=== PATIENT | female | born 1970 | race Caucasian/White ===

== ENCOUNTER 2019-01-29 12:01 | Emergency (ER) | payer BC ==
[2019-01-29] MEDS: ACETAMINOPHEN 500 MG TAB PO (12:59)
[2019-01-29] MEDS: LORAZEPAM 1 MG TAB PO (12:59)
== END 2019-01-29 14:47 | disposition home or self-care (01) ==
LOC: FTE 12:01
DX: R07.89 Other chest pain (principal); M25.512 Pain in left shoulder; M25.562 Pain in left knee
CPT/HCPCS: 70450; 71046; 71100; 73030; 73562; 99284-25